=== PATIENT | male | born 1995 | race Caucasian/White ===

== ENCOUNTER 2024-11-25 12:49 | Emergency (ER) | payer OTHER ==
--- NOTE | 2024-11-25 13:21 | EDPHYS ---
Physician Documentation [facility] Name: Ugo Gupta Age: 29 yrs Sex: Male : 1995 Arrival Date: 11/25/2024 Time: 12:49 Bed 12 Private MD: ED Physician Fadia Astorga HPI: 11/25 13:12 This 29 yrs old Male presents to ER via Ambulatory with complaints of Bump on sw6 Neck. 13:12 The patient presents from home for evaluation for a bump to his right upper neck on the sw6 posterior side that been present for over 3 years. He reports it has been getting bigger and has been bothering him the past 3 days. He went to urgent care several days ago and was prescribed antibiotics which he reports is not helping. No fevers. No drainage from the area. No injury or trauma. No history of diabetes. Here for evaluation. Historical: - Allergies: 13:00 No Known Allergies; iw - Home Meds: 13:00 None [Active]; iw - PMHx: 13:00 None; iw - Immunization history:: Adult Immunizations. - Infectious Disease History:: Denies. - Social history:: Smoking status: Patient denies any tobacco usage or history of. ROS: 13:12 Constitutional: Negative for fever, chills, and weight loss, Cardiovascular: Negative sw6 for chest pain, palpitations, and edema, Respiratory: Negative for shortness of breath, cough, wheezing, and pleuritic chest pain, Abdomen/GI: Negative for abdominal pain, nausea, vomiting, diarrhea, and constipation, 13:12 Neck: Positive for mass, 13:12 All other systems are negative, Exam: 13:12 Constitutional: This is a well developed, well nourished patient who is awake, alert, sw6 and in no acute distress. 13:12 Cardiovascular: Regular rate and rhythm with a normal S1 and S2. No gallops, murmurs, or rubs. Normal PMI, no JVD. No pulse deficits. Respiratory: Lungs have equal breath sounds bilaterally, clear to auscultation and percussion. No rales, rhonchi or wheezes noted. No increased work of breathing, no retractions or nasal flaring. Abdomen/GI: Soft, non-tender, with normal bowel sounds. No distension or tympany. No guarding or rebound. No evidence of tenderness throughout. Psych: Awake, alert, with orientation to person, place and time. Behavior, mood, and affect are within normal limits. 13:12 Neck: External neck: mass, of the right trapezius, 3 x 3 cm mass that is soft, mobile and not fluctuant noted to his right posterior neck., Vital Signs: 12:59 BP 156 / 76; Pulse 79; Resp 16; Temp 98.4; Pulse Ox 100% on R/A; Weight 104.33 kg; iw Height 6 ft. 1 in. ; Pain 6/10; 12:59 Body Mass Index 30.34 (104.33 kg, 185.42 cm) iw 12:59 Pain Scale: Adult iw MDM: 13:12 Differential diagnosis: abscess, cellulitis, Lipoma. Data reviewed: vital signs, nurses sw6 notes. ED course: The patient presents from home for evaluation for a lump to his right posterior neck that is been present for the past 3 years and is slowly getting bigger and now causing him some discomfort. No fevers. No drainage from the area. He did go to urgent care several days ago and was prescribed antibiotics which she reports is not helping. Vital signs are stable in the ER. He has a 3 x 3 cm mass located to his right posterior neck that is soft, mobile and not fluctuant. Bedside ultrasound shows no fluid collection rather the collection is solid. Suspect a lipoma. Recommend he follow-up with general surgery or dermatology for elective removal. He remained stable here in the ER and is okay for discharge home with PCP follow-up.. 13:21 Medical Screening Exam initiated sw6 Administered Medications: No medications were administered Disposition Summary: 11/25/24 13:21 Discharge Ordered Notes: Location: Home sw6 Condition: Stable sw6 Diagnosis - lipoma sw6 Followup: sw6 - With: Glen Isabel MD - When: 2 - 3 days - Reason: Followup: sw6 - With: Alen Kuo MD - When: 2 - 3 days - Reason: Discharge Instructions: - Discharge Summary Sheet ll1 - Lipoma sw6 Forms: - Work release form ll1 - Medication Reconciliation Form sw6 - Antibiotic Education sw6 - Prescription Opioid Use sw6 - Patient Portal Instructions sw6 - Leadership Thank You Letter 6 Signatures: Lyubov Astorga RN RN iw Danis Felton RN RN ll1 Fadia Astorga MD MD sw6
--- NOTE | 2024-11-25 13:21 | ER ---
Nurse's Notes [facility] Name: Ugo Gupta Age: 29 yrs Sex: Male : 1995 Arrival Date: 11/25/2024 Time: 12:49 Bed 12 Private MD: Diagnosis: lipoma Presentation: 11/25 12:59 Chief complaint: Patient states: has a cyst on right shoulder/neck area , was seen at urgent care yesterday and they gave hm a steroid and abx. Coronavirus screen: At this time, the client does not indicate any symptoms associated with coronavirus-19. Ebola Screen: No symptoms or risks identified at this time. Initial Sepsis Screen: Does the patient meet any 2 criteria? No. Patient's initial sepsis screen is negative. Does the patient have a suspected source of infection? No. Patient's initial sepsis screen is negative. Risk Assessment: Do you want to hurt yourself or someone else? Patient reports no desire to harm self or others. 12:59 Method Of Arrival: Ambulatory iw 12:59 Acuity: DEANA 4 iw 13:25 Onset of symptoms is unknown. ll1 Historical: - Allergies: 13:00 No Known Allergies; iw - Home Meds: 13:00 None [Active]; iw - PMHx: 13:00 None; iw - Immunization history:: Adult Immunizations. - Infectious Disease History:: Denies. - Social history:: Smoking status: Patient denies any tobacco usage or history of. Screenin:13 [facility] ED Fall Risk Assessment (Adult) History of falling in the last 3 months, ll1 including since admission No falls in past 3 months (0 pts) Confusion or Disorientation No (0 pts) Intoxicated or Sedated No (0 pts) Impaired Gait No (0 pts) Mobility Assist Device Used No (0 pt) Altered Elimination No (0 pt) Score/Fall Risk Level 0 - 2 = Low Risk Maintained a safe environment, Hourly rounding (assess needs \T\ fall precautionary measures) done. Abuse screen: Denies threats or abuse. Nutritional screening: No deficits noted. Tuberculosis screening: No symptoms or risk factors identified. Assessment: 13:13 General: Appears uncomfortable, Behavior is calm, cooperative, appropriate for age. ll1 Pain: Complains of pain in back. Derm: Reports cyst to R posterior shoulder area. 13:24 Reassessment: No changes from previously documented assessment. Patient and/or family ll1 updated on plan of care and expected duration. Pain level reassessed. Patient is alert, oriented x 3, equal unlabored respirations, skin warm/dry/pink. Vital Signs: 12:59 BP 156 / 76; Pulse 79; Resp 16; Temp 98.4; Pulse Ox 100% on R/A; Weight 104.33 kg; iw Height 6 ft. 1 in. ; Pain 6/10; 12:59 Body Mass Index 30.34 (104.33 kg, 185.42 cm) iw 12:59 Pain Scale: Adult ED Course: 12:52 Patient arrived in ED. cj3 12:54 Fadia Astorga MD is Attending Physician. 6 13:00 Triage completed. iw 13:00 Arm band placed on. iw 13:02 Danis Felton RN is Primary Nurse. ll1 13:03 Patient placed in an exam room, on a stretcher. ll1 13:13 Patient has correct armband on for positive identification. Bed in low position. Call ll1 light in reach. Provided Education on: ER procedures and process. Cardiac monitoring not applicable on this patient. 13:14 No provider procedures requiring assistance completed. Patient did not have IV access ll1 during this emergency room visit. 13:19 Glen Isabel MD is Referral Physician. 6 13:21 Alen Kuo MD is Referral Physician. sw6 Administered Medications: No medications were administered Medication: 13:14 VIS not applicable for this client. ll1 Outcome: 13:21 Discharge ordered by . 6 13:24 Discharged to home ambulatory, ll1 13:24 Condition: stable 13:24 Discharge instructions given to patient, Instructed on discharge instructions, follow up and referral plans. wound care, Demonstrated understanding of instructions, follow-up care, wound care, 13:25 Patient left the ED. ll1 Signatures: Lyubov Astorga RN RN Danis Felton RN RN 1 Fadia Astorga MD MD rust Negar Gracia cj3
[2024-11-25 13:30] VITALS: BP 156/76; TEMP 98.4; O2SAT 100
== END 2024-11-25 13:25 | disposition home or self-care (01) ==
LOC: ER 12:49
DX: D17.0 Benign lipomatous neoplasm of skin and subcutaneous tissue of head, face and neck (principal)